=== PATIENT | female | born 1945 | race Caucasian/White ===

== ENCOUNTER 2019-02-28 16:14 | Emergency (ER) | payer MEDICARE ==
[2019-02-28] MEDS ORDERED: SODIUM CHLORIDE 0.9% 1,000 ML IV STA (16:50)
[2019-02-28 17:15] LABS: Basophils # (A) 0.1 k/uL (0-0.2); Basophils % (A) 1 %; Eosinophils # (A) 0.2 k/uL (0-0.7); Eosinophils % (A) 2 %; HCT 45.7 % (34.0-46.0); HGB 15.6 gm/dL (11.4-16.0); Lymphocytes # (A) 2.9 k/uL (1.0-4.8); Lymphocytes % (A) 33 %; MCH 32.4 pg (25.0-35.0); MCV 95.3 fL (80.0-100.0); Mean Platelet Volume 6.4; Monocytes # (A) 0.4 k/uL (0-1.0); Monocytes % (A) 5 %; Neutrophils # (A) 5.2 k/uL (1.3-7.7); Neutrophils % (A) 58 %; Platelet Count 271 k/uL (150-450); RDW 12.9 % (11.5-15.5); WBC 8.9 k/uL (3.8-10.6)
[2019-02-28 17:21] LABS: Albumin 4.2 g/dL (3.5-5.0); Calcium 9.4 mg/dL (8.4-10.2); Magnesium 2.2 mg/dL (1.6-2.3); Phosphorus 3.5 mg/dL (2.5-4.5); Potassium 4.4 mmol/L (3.5-5.1); Total Bilirubin 0.3 mg/dL (0.2-1.3); Total Protein 6.9 g/dL (6.3-8.2)
[2019-02-28 17:24] LABS: D-Dimer 0.58 mg/L FEU (<0.60); INR 0.9 (<1.2); Partial Thromboplastin Time 24.4 sec (22.0-30.0); Prothrombin Time 9.8 sec (9.0-12.0)
--- NOTE | 2019-02-28 17:33 | ED ---
Chest Pain HPI - General Chief Complaint: Arrhythmia/Palpitations Stated Complaint: Stress Time Seen by Provider: 02/28/19 16:19 Source: patient, RN notes reviewed, old records reviewed Mode of arrival: EMS Limitations: no limitations - History of Present Illness Initial Comments: This is a 73-year-old female she presents today for evaluation of palpitations overall not feeling well. Patient did admit to some increased stress as of late. Thinks it may be stress reaction to recent family member's or passing. But the issues with going on for 4 days. She is having some anterior chest pain and tightness with some increased anxiety. Patient has no significant medical history has surgery of gallbladder hysterectomy. No recent travel history no sick contacts no recent surgeries. No fevers. No shortness of breath or sweating during the events of pain. Patient is currently asymptomatic since today just because the pain is not gone away MD Complaint: chest pain -: days(s) Onset: during rest, during exertion Pain Location: substernal Pain Radiation: none Severity: mild Severity scale (1-10): 2 Quality: tightness Consistency: intermittent Improves With: nothing Worsens With: other (Stress reaction) Anginal Symptoms: other (None) Other Symptoms: other Treatments Prior to Arrival: other (Patient was seen at [facility] sent to ER) - Related Data Home Medications Medication Instructions Recorded Confirmed Aspirin 325 mg PO DAILY PRN 02/28/19 02/28/19 Cholecalciferol (Vitamin D3) 2,000 unit PO DAILY 02/28/19 02/28/19 [Vitamin D3] Latanoprost [Xalatan 0.005%] 1 drop BOTH EYES HS 02/28/19 02/28/19 Vit C/E/Zn/Coppr/Lutein/Zeaxan 1 cap PO DAILY 02/28/19 02/28/19 [Preservision Areds 2 Softgel] Allergies Allergy/AdvReac Type Severity Reaction Status Date / Time codeine Allergy Nausea & Verified 02/28/19 16:42 Vomiting latex Allergy Rash/Hives Verified 02/28/19 16:42 Review of Systems ROS Statement: Those systems with pertinent positive or pertinent negative responses have been documented in the HPI. ROS Other: All systems not noted in ROS Statement are negative. EKG Findings - EKG Comments: EKG Findings:: EKG shows sinus bradycardia 57, WV 204, QRS 86, QTc 424. EMS reports PVCs on rhythm strip Past Medical History Additional Past Medical History / Comment(s): leaky valve, tias, neuropathy History of Any Multi-Drug Resistant Organisms: None Reported Past Surgical History: Cholecystectomy, Hysterectomy Past Psychological History: No Psychological Hx Reported Smoking Status: Never smoker Past Alcohol Use History: Occasional Past Drug Use History: None Reported General Exam Limitations: no limitations General appearance: alert, in no apparent distress Head exam: Present: atraumatic, normocephalic, normal inspection Eye exam: Present: normal appearance, PERRL, EOMI. Absent: scleral icterus, conjunctival injection, periorbital swelling ENT exam: Present: normal exam, mucous membranes moist Neck exam: Present: normal inspection. Absent: tenderness, meningismus, lymphadenopathy Respiratory exam: Present: normal lung sounds bilaterally. Absent: respiratory distress, wheezes, rales, rhonchi, stridor Cardiovascular Exam: Present: regular rate, normal rhythm, normal heart sounds. Absent: systolic murmur, diastolic murmur, rubs, gallop, clicks GI/Abdominal exam: Present: soft, normal bowel sounds. Absent: distended, tenderness, guarding, rebound, rigid Extremities exam: Present: normal inspection, full ROM, normal capillary refill. Absent: tenderness, pedal edema, joint swelling, calf tenderness Back exam: Present: normal inspection Neurological exam: Present: alert, oriented X3, CN II-XII intact Psychiatric exam: Present: normal affect, normal mood Skin exam: Present: warm, dry, intact, normal color. Absent: rash Course Vital Signs 02/28/19 02/28/19 16:19 17:00 Temperature 98.2 F Pulse Rate 64 59 L Respiratory 16 18 Rate Blood Pressure 177/79 163/83 O2 Sat by Pulse 100 99 Oximetry - Reevaluation(s) Reevaluation #1: 02/28/19 18:44 Medical records reviewed Reevaluation #2: 02/28/19 18:44 Patient is asymptomatic no chest pain no shortness of breath Reevaluation #3: 02/28/19 18:44 Spoke with patient's regarding results. Patient states she feels fine and would like to be discharged home Chest Pain MDM - MDM 43 female with nonspecific chest tightness for 4 days episodic some mild anxiety and stress reaction. No shortness of breath no history of blood clot or DVT or PE Disposition Clinical Impression: Palpitations, Atypical chest pain, Anxiety Disposition: HOME SELF-CARE Condition: Good Instructions (If sedation given, give patient instructions): Heart Palpitations (ED) Is patient prescribed a controlled substance at d/c from ED?: No Referrals: Ricky Park III, MD [Primary Care Provider] - 1-2 days
--- NOTE | 2019-02-28 17:40 | XR ---
EXAMINATION: XR chest 2V DATE AND TIME: 02/28/2019 5:10 PM CLINICAL INDICATION: PHH; Weakness TECHNIQUE: Departmental protocol COMPARISON: None available. FINDINGS: Lungs are predominantly clear and well expanded. However, there is a right suprahilar subtle added de nsity, projecting just caudal to the head of the clavicle, which is most likely to represent summatio n shadows of overlapping normal anatomy. This density is not definitely confirmed on the lateral view . However, there are no prior imaging studies on PACS and, therefore, further characterization of thi s finding with noncontrast chest CT is suggested. The pleural spaces are negative. The cardiac silhouette is not enlarged. The remainder of the mediastinal silhouette is unremarkable. The skeletal structures and soft tissues are negative for acute findings. IMPRESSION: 1. No definite acute radiographic process. 2. However, right suprahilar density as discussed.
[2019-02-28 18:58] VITALS: BP 152/81; PULSE 58; RESP 16; TEMP 98.3
== END 2019-02-28 18:56 | disposition home or self-care (01) ==
LOC: EC 16:14
DX: F41.9 Anxiety disorder, unspecified (principal); R07.89 Other chest pain; F43.9 Reaction to severe stress, unspecified; Z88.5 Allergy status to narcotic agent; Z91.040 Latex allergy status; Z79.82 Long term (current) use of aspirin; Z86.73 Personal history of transient ischemic attack (TIA), and cerebral infarction without residual deficits
CPT/HCPCS: 36415; 71046; 80053; 82550; 83735; 83880; 84100; 84443; 84484; 85025; 85379; 85610; 85730; 93005; 96360; 99285

== ENCOUNTER → 2019-03-17 | Outpatient (CLI) | payer MEDICARE ==
--- NOTE | 2019-03-17 14:06 | US ---
EXAMINATION TYPE: US pelvic complete DATE OF EXAM: 03/17/2019 COMPARISON: NONE CLINICAL HISTORY: R10.2 pelvic pain. Intermittent pelvic pain and dark discharge x couple months, gra daniel 2, para 2, history of hysterectomy TECHNIQUE: Transabdominal sonographic images of the pelvis were acquired. Date of LMP: 1984 EXAM MEASUREMENTS: Uterus: surgically absent Endometrial Stripe: surgically absent Right Ovary: 2.0 x 1.2 x 1.2 cm Left Ovary: 1.5 x 0.7 x 1.3 cm 1. Uterus: surgically absent 2. Endometrium: surgically absent 3. Right Ovary: appears wnl 4. Left Ovary: appears wnl 5. Bilateral Adnexa: wnl 6. Posterior cul-de-sac: wnl IMPRESSION: Atrophic ovaries and surgical absence of the uterus. No suspicious mass is seen.
== END | disposition home or self-care (01) ==
LOC: RADUSWWP 13:19
PROVIDERS: ATTEND Obstetrics & Gynecology
DX: N83.312 Acquired atrophy of left ovary (principal); N83.311 Acquired atrophy of right ovary; Z90.710 Acquired absence of both cervix and uterus
CPT/HCPCS: 76856

== ENCOUNTER 2020-12-16 11:50 | Day surgery (SDC) | payer MEDICARE, OTHER ==
--- NOTE | 2020-12-16 01:26 | HP ---
HISTORY AND PHYSICAL REASON FOR ADMISSION: Surgery scheduled for 12/16/2020 HISTORY OF PRESENT ILLNESS: Irma Butts is a 75-year-old patient seen with progressive left knee pain. We discussed options for treatment. She elected to proceed with arthroscopy. Consent was obtained. PAST MEDICAL HISTORY: Hypertension. SURGICAL HISTORY: Cataract surgery, cholecystectomy, hysterectomy. DAILY MEDICATIONS: Lisinopril, vitamins. ALLERGIES: CODEINE AND TAPE. SOCIAL HISTORY: She denies current tobacco use. PHYSICAL EVALUATION OF THE LEFT KNEE: Range of motion zero to 130. Mild effusion. Tenderness along the medial joint line. Tenderness along the lateral joint line. Positive medial Charly's. Positive lateral Charly's. Ligaments stable. Hip rotation without pain. Distal neurovascular exam intact. RADIOGRAPHS: Radiographs of the left knee revealed moderate osteoarthritic changes. IMPRESSION: 1. Internal derangement left knee with medial meniscal tear. 2. Left knee osteoarthritis. 3. Hypertension. PLAN: Left knee arthroscopy with partial meniscectomy and debridement. Surgery scheduled 12/16/2020. MMODL / IJN: [id number] /
[~2020-12-16 11:50] MED LIST: DEXAMETHASONE SOD PHOSPHATE 4 MG/ML 1 ML VIAL IV ONE; HYDROmorphone 0.5 MG/0.5 ML SYRINGE IVP PRN; LACTATED RINGERS 1,000 ML IV SCH; ONDANSETRON 4 MG/2 ML VIAL IVP ONE
[2020-12-16] MEDS ORDERED: LIDOCAINE 1% INJ 10MG/ML (20 ML MDV) ONE (12:20)
[2020-12-16] MEDS ORDERED: PROPOFOL 10 MG/ML 20 ML VIAL IV ONE (12:20)
[2020-12-16] MEDS ORDERED: fentaNYL (PF) 50 MCG/ML 2 ML AMP ONE (12:20)
[2020-12-16] MEDS ORDERED: MIDAZOLAM 2 MG/2 ML VIAL ONE (12:20)
[2020-12-16] MEDS ORDERED: BUPIVACAINE (PF) 0.25% 30 ML VIAL SQ ONE ×2 (12:24→13:01)
--- NOTE | 2020-12-16 13:15 | P.OP ---
Date of Procedure: 12/16/20 Preoperative Diagnosis: Internal derangement left knee Postoperative Diagnosis: 1. Tear medial meniscus left knee 2. Grade 3/4 chondromalacia medial femoral condyle left knee 3. Reactive synovitis medial, lateral and suprapatellar compartments left knee Procedure(s) Performed: 1. Arthroscopic partial medial meniscectomy left knee 2. Arthroscopic chondroplasty medial femoral condyle left knee 3. Arthroscopic partial synovectomy medial, lateral and suprapatellar compartments left knee Anesthesia: GETA, local Surgeon: Leo Erazo Estimated Blood Loss (ml): 7 Pathology: none sent Condition: stable Disposition: PACU Indications for Procedure: 75-year-old patient seen with progressive left knee pain. After treatment options were discussed, she elected to proceed with arthroscopy. Operative Findings: See description of procedure Description of Procedure: Patient was taken to the operative suite. Patient underwent a general anesthetic by the department of anesthesia. Patient was given preoperative antibiotics. The left lower extremity was placed in a well-padded arthroscopic leg mejia. The left leg was prepped and draped in the normal sterile orthopedic fashion. A lateral parapatellar and suprapatellar incision was made. Trochars were inserted. Arthroscopy was initiated. Suprapatellar pouch revealed diffuse thick reactive synovitis. The patellofemoral joint appeared to articulate congruently. There was grade 2/3 chondromalacia of the patella with some small osteochondral tears present. The scope was guided into the medial gutter. No loose bodies or plica were identified. The scope was then guided into the medial compartment. A medial parapatellar incision was made. Trocar inserted followed by probe. There was a complex tear involving the posterior horn of the medial meniscus extending slightly into the midbody. There were grade 3/4 chondromalacia changes of the medial femoral condyle with some osteochondral tears present. There was thick reactive synovitis anteriorly. I performed a partial medial meniscectomy getting down to stable meniscal tissue. I performed a chondroplasty of the medial femoral condyle getting down to stable osteochondral tissue. I performed a partial synovectomy decompressing the reactive synovitis. The shaver was removed. The residual meniscus was stable. The residual osteochondral surface was stable. There was good decompression of the synovitis. Scope and probe were then guided into the intercondylar notch. Cruciates were identified, probed and found to be stable. The scope and probe were then guided into lateral compartment. Lateral meniscus was probed and found to be stable. There were some grade 1 chondromalacia changes of lateral compartment with no tears. There was thick reactive synovitis anteriorly. I introduced a motorized shaver and performed a partial synovectomy. The shaver was removed. There was good decompression of the synovitis. The scope was in guided back into the suprapatellar compartment. I introduced a motorized shaver into the super patellar compartment. I performed a chondroplasty of the patella. I debrided out some piecemeal fragments of meniscus I encountered. I performed a partial synovectomy. The shaver was removed. There was good decompression of the synovitis. Instruments were now removed from the joint. The joint was infiltrated with .25% Marcaine. Steri-Strips were applied to the portal sites. Sterile dressings were applied. The patient was placed into a MICHI hose. No tourniquet was utilized. The patient was awakened, transferred to a bed and taken to recovery stable satisfactory condition.
[2020-12-16 13:18] VITALS: TEMP 97
[2020-12-16] MEDS ORDERED: ONDANSETRON 4 MG/2 ML VIAL ONE (13:34)
[2020-12-16] MEDS ORDERED: ONDANSETRON 4 MG/2 ML VIAL IVP ONE (13:36)
[2020-12-16 14:01] VITALS: RESP 20
[2020-12-16 14:25] VITALS: BP 128/68; PULSE 56
== END 2020-12-16 15:17 | disposition home or self-care (01) ==
LOC: OR 11:50
PROVIDERS: ATTEND Orthopaedic Surgery
DX: S83.242A Other tear of medial meniscus, current injury, left knee, initial encounter (principal); X58.XXXA Exposure to other specified factors, initial encounter; M94.262 Chondromalacia, left knee; M65.9 Synovitis and tenosynovitis, unspecified; I10 Essential (primary) hypertension; Z79.899 Other long term (current) drug therapy; Z88.5 Allergy status to narcotic agent; Z91.048 Other nonmedicinal substance allergy status
CPT/HCPCS: 29881; 29876; J2250; J1100; J0690; J2405; J2001; J3010; J2704; J1170

== ENCOUNTER → 2021-02-10 | Outpatient (CLI) | payer MEDICARE, OTHER ==
--- NOTE | 2021-02-10 17:59 | MR ---
EXAMINATION TYPE: MR shoulder RT wo con DATE OF EXAM: 02/10/2021 COMPARISON: No radiographic correlation available HISTORY: 75-year-old female M25.511, Right shoulder pain for several months. TECHNIQUE: Multiplanar, multisequence imaging of the right shoulder is performed without contrast. FINDINGS: The long biceps tendon appears intact. There is slight medial subluxation along the upper bicipital g roove ingesting attritional tear in the subscapularis tendon. The majority of the subscapularis tendo n remains intact. Mild degenerative change at the acromioclavicular joint with joint space narrowing and capsular hyper trophy. Mild degenerative spurring is present. No significant mass effect onto the underlying myotend inous junction of the supraspinatus tendon. There is moderate sized anterior subcutaneous acromial/subdeltoid bursal effusion. No large retracted full-thickness tear is identified. The anterior fibers of the supraspinatus tendon are very heteroge neous with areas of increased signal and a small full-thickness defect here is difficult to exclude. Areas of intrasubstance change within the remainder of the supraspinous tendon. Infraspinous tendon is intact. Minimal fatty streaks within the subscapularis muscle belly. No atrophy of either supraspinatus or in fraspinatus muscle bellies. There is moderate irregular cartilage thinning along the superior half of the humeral head articular surface and [id number] irregular cartilage thinning along the glenoid. The superior labrum is d egenerative and blunted and the suspected tear extending to the mid posterior labrum. Marginal spurri ng is present in the glenohumeral joint. Mild glenoid humeral joint effusion. No Hill-Sachs deformity or os acromiale. No suspicious bone marrow replacement. IMPRESSION: 1. Diffuse rotator cuff tendinosis. Moderate-sized anteriorly located subacromial/subdeltoid bursal e ffusion. There is heterogeneity and irregularity of the far anterior supraspinous tendon fibers. A sm all underlying full-thickness defect is difficult to exclude given this irregularity and the anterior bursal effusion. No large retracted full-thickness tear. 2. Attritional tearing of the subscapularis tendon allowing for slight medial subluxation of the long head biceps tendon in the upper bicipital groove. The majority of the subscapularis tendon remains i ntact. Minimal fatty streaks within the subscapularis muscle belly. Otherwise, no rotator cuff muscle atrophy. 3. Moderate overall glenohumeral joint OA with a degenerative and torn superior labrum extending back to the mid aspect of the posterior labrum. 4. Mild AC joint OA.
== END | disposition home or self-care (01) ==
LOC: RADMRIMAIN 14:16
PROVIDERS: ATTEND Orthopaedic Surgery
DX: M19.011 Primary osteoarthritis, right shoulder (principal); M75.111 Incomplete rotator cuff tear or rupture of right shoulder, not specified as traumatic; M67.813 Other specified disorders of tendon, right shoulder; M24.111 Other articular cartilage disorders, right shoulder

== ENCOUNTER → 2021-07-25 | Outpatient (CLI) | payer MEDICARE, OTHER ==
--- NOTE | 2021-07-26 06:36 | MR ---
EXAMINATION TYPE: MR angio head wo con DATE OF EXAM: 07/25/2021 COMPARISON: NONE HISTORY: Subacute stroke. CVA. TECHNIQUE: Time of flight images focusing on the [place] of [place] were performed without contrast.. 2-D and 3-D postprocessing imaging is performed on a independent workstation. FINDINGS: Left vertebral artery slightly larger or dominant. Vertebral arteries are patent to basilar junction. There are small caliber but patent bilateral posterior communicating arteries. There is no significant focal stenosis or aneurysm in the posterior circulation. Images of the anterior circulation showed tortuosity of the distal internal carotid arteries bilatera lly. There is tortuous course to the right A1 segment. Patent anterior communicating artery is seen. There is no significant focal stenosis or aneurysm identified. IMPRESSION: No aneurysm or significant focal stenosis identified at level of [place].
== END | disposition home or self-care (01) ==
LOC: RADMRIMAIN 17:02
PROVIDERS: ATTEND Psychiatry & Neurology Neurology
DX: I69.398 Other sequelae of cerebral infarction (principal)
CPT/HCPCS: 70544

== ENCOUNTER → 2022-09-13 | Outpatient (CLI) | payer MEDICARE, OTHER ==
--- NOTE | 2022-09-14 09:16 | MM ---
Reason for Exam: Screening (asymptomatic). Last mammogram was performed 1 year(s) and 10 month(s) ago. Patient History: Menarche at age 14. First Full-Term at age 20. Hysterectomy at age 39. Postmenopausal. 2020, Stereotactic Core Biopsy on the Left side. Mother had breast cancer, age 80. Risk Values: Francisca 5 year model risk: 3.5%. NCI Lifetime model risk: 6.3%. Prior Study Comparison: 12/01/2019 Bilateral MG screening mammo w CAD - 2, [facility]. 12/02/2020 Bilateral MG screening mammo w CAD - 2, [facility]. Tissue Density: There are scattered fibroglandular densities. Findings: Analyzed By CAD. Mammotome biopsy clip left breast is redemonstrated. Benign-appearing left axillary lymph nodes are again seen. A few tiny benign-appearing round calcifications throughout the bilateral breasts are redemonstrated. Stable small circumscribed round mass in the left breast near 3 mm from outside mammograms. There is no suspicious group of microcalcifications or new or enlarging suspicious mass in either breast. Overall Assessment: Benign, BI-RAD 2 Management: Screening Mammogram of both breasts in 1 year. . Patient should continue monthly self-breast exams. A clinical breast exam by your physician is recommended on an annual basis. This exam should not preclude additional follow-up of suspicious palpable abnormalities. Note on Francisca scores and lifetime risk: 1. A Francisca score greater than 3% is considered moderate risk. If this is the case, consider specialist referral to assess eligibility for a risk reducing agent. 2. If overall lifetime risk for the development of breast cancer is 20% or higher, the patient may qualify for future screening with alternating mammogram and breast MRI. Electronically signed and approved by: Manuel Darnell M.D.
== END | disposition home or self-care (01) ==
LOC: RADMAMWWP 08:21
PROVIDERS: ATTEND Family Medicine
DX: Z12.31 Encounter for screening mammogram for malignant neoplasm of breast (principal); Z78.0 Asymptomatic menopausal state; Z80.3 Family history of malignant neoplasm of breast
CPT/HCPCS: 77063; 77067

== ENCOUNTER 2022-12-21 10:53 | Inpatient (IN) | payer MEDICARE, OTHER ==
[2022-12-21 11:28] LABS: Basophils % (A) 0 %; Eosinophils # (A) 0.1 k/uL (0-0.7); Eosinophils % (A) 1 %; HCT 49.9 % (34.0-46.0); HGB 16.8 gm/dL (11.4-16.0); Lymphocytes # (A) 2.6 k/uL (1.0-4.8); Lymphocytes % (A) 28 %; MCH 31.6 pg (25.0-35.0); MCHC 33.7 g/dL (31.0-37.0); Mean Platelet Volume 7.8; Monocytes # (A) 0.6 k/uL (0-1.0); Monocytes % (A) 6 %; Neutrophils % (A) 64 %; Platelet Count 281 k/uL (150-450); RBC 5.31 m/uL (3.80-5.40); WBC 9.5 k/uL (3.8-10.6)
[2022-12-21 11:39] LABS: ALT 33 U/L (4-34); AST 36 U/L (14-36); African American GFR (CKD) >90 (>60 ml/min/1.73 sqM); Albumin 4.6 g/dL (3.5-5.0); Alkaline Phosphatase 111 U/L (38-126); Anion Gap 9 mmol/L; Blood Urea Nitrogen 13 mg/dL (7-17); Calcium 9.5 mg/dL (8.4-10.2); Carbon Dioxide 27 mmol/L (22-30); Chloride 105 mmol/L (98-107); Glucose 93 mg/dL (74-99); Magnesium 2.2 mg/dL (1.6-2.3); Non-African American GFR(CKD) 84 (>60 ml/min/1.73 sqM); Potassium 4.1 mmol/L (3.5-5.1); Sodium 141 mmol/L (137-145); Total Bilirubin 0.8 mg/dL (0.2-1.3); Total Protein 7.4 g/dL (6.3-8.2)
[2022-12-21 11:39] LABS: Appearance,Urine Clear (Clear); Bilirubin,Urine Negative (Negative); Blood,Urine Negative (Negative); Color,Urine Light Yellow; Glucose,Urine (UA) Negative (Negative); Ketones,Urine Negative (Negative); Leukocyte Esterase,Urine Small (Negative); Mucus,Urine Rare /hpf; Nitrite,Urine Negative (Negative); PH, Urine 6.5 (5.0-8.0); Protein,Urine Negative (Negative); RBC,Urine <1 /hpf (0-5); Specific Gravity,Urine 1.004 (1.001-1.035); Squamous Epithelial Cell,Urine <1 /hpf (0-4); Urobilinogen,Urine <2.0 mg/dL (<2.0); WBC,Urine 2 /hpf (0-5)
[2022-12-21 13:12] LABS: Partial Thromboplastin Time 24.8 sec (22.0-30.0); Prothrombin Time 10.5 sec (9.0-12.0)
--- NOTE | 2022-12-21 13:31 | ED ---
General Adult HPI - General Chief complaint: Dizziness Stated complaint: neuro issues, hypertension Time Seen by Provider: 12/21/22 13:30 Source: patient Mode of arrival: ambulatory Limitations: no limitations - History of Present Illness Initial comments: Irma is a pleasant 77yo F who presents to the ER via private vehicle for evaluation of dizziness and unsteady gait. Patient reports that she has a history of vertigo and on Sunday she started feeling somewhat dizzy and unsteady on her feet. She states that she tried to sleep, however she woke up Sunday and had persistent dizziness. She felt okay if she wasn't moving but any time she tried to walk her or turn her head she felt dizzy however she was most concerned by the fact that she had no balance when attempting to walk. She's never experienced symptoms this severe with vertigo in the past. Patient reports she had a mild headache and nausea so she didn't eat or drink anything on Sunday. Symptoms persisted in her being off balance seemed to worsen on Sunday she is requiring assistance to walk to the restroom. Due to persistence of symptoms she decided to come to the ER today. At this point patient states she cannot even stand without assistance because she is soft tri nce. - Related Data Home Medications Medication Instructions Recorded Confirmed lisinopriL [Zestril] 2.5 mg PO DAILY 12/16/20 12/21/22 Aspirin EC [Ecotrin Low Dose] 81 mg PO DAILY 12/21/22 12/21/22 Cholecalciferol [Vitamin D3 (25 50 mcg PO DAILY 12/21/22 12/21/22 Mcg = 1000 Iu)] Meclizine [Antivert] 25 mg PO TID PRN 12/21/22 12/21/22 Mv-Mn/Om3/Dha/Epa/Fish/Lut/Jax 1 cap PO DAILY 12/21/22 12/21/22 [Ocuvite Adult 50 Plus Softgel] Allergies Allergy/AdvReac Type Severity Reaction Status Date / Time codeine Allergy Nausea & Verified 12/21/22 14:48 Vomiting latex Allergy Rash/Hives Verified 12/21/22 14:48 Review of Systems ROS Statement: Those systems with pertinent positive or pertinent negative responses have been documented in the HPI. ROS Other: All systems not noted in ROS Statement are negative. Past Medical History Past Medical History: COPD, CVA/TIA, Hypertension Additional Past Medical History / Comment(s): BRONCHITIS. Leaky valve (WAS TOLD BY DR, PATIENT DOES NOT KNOW SPECIFICS). Neuropathy LOWER EXTREMITIES. LOWER BACK (BULGING DISCS). History of Any Multi-Drug Resistant Organisms: None Reported Past Surgical History: Breast Surgery, Cholecystectomy, Hysterectomy Additional Past Surgical History / Comment(s): BILATERAL CATARACT AND LENS IMPLANTS. LEFT BREAST LUMPECTOMY (PATIENT THINKS ITS PRECANCEROUS) Past Anesthesia/Blood Transfusion Reactions: Motion Sickness, Postoperative Nausea & Vomiting (PONV) Past Psychological History: Anxiety Smoking Status: Never smoker Past Alcohol Use History: Rare Past Drug Use History: None Reported - Past Family History Son(s) Family Medical History: Pulmonary Embolus General Exam - General Exam Comments Initial Comments: Physical Exam GENERAL: Patient is well-developed and well-nourished. Patient is nontoxic and well-hydrated and is in no distress. HENT: Normocephalic, Atraumatic. EYES: PERRL, EOMI PULMONARY: Unlabored respirations. No audible rales rhonchi or wheezing was noted. CARDIOVASCULAR: There is a regular rate and rhythm without any murmurs gallops or rubs. ABDOMEN: Soft and nontender with normal bowel sounds. SKIN: Skin is clear with no lesions or rashes and otherwise unremarkable. : Deferred NEUROLOGIC: Patient is alert and oriented x3. Moving all extremities spontaneously CN II-XII grossly intact Normal finger nose Normal repetitive motion task Normal heel lin Positive Romberg MUSCULOSKELETAL: Normal extremities with adequate strength and full range of motion. No lower extremity swelling or edema. No calf tenderness. PSYCHIATRIC: Normal psychiatric evaluation. Limitations: no limitations Course Vital Signs 12/21/22 12/21/22 12/21/22 10:55 14:00 15:56 Temperature 98.2 F Pulse Rate 61 58 L 88 Respiratory 20 18 18 Rate Blood Pressure 169/72 152/75 162/94 O2 Sat by Pulse 98 97 97 Oximetry EKG Findings - EKG Comments: EKG Findings:: EKG interpreted by me, EKG is obtained due to strokelike symptoms EKG obtained at 1103, rate is 63 rhythm is sinus, normal axis normal intervals [place] 188 QRS [address] QTc [address] elevations or depressions or evidence of ischemia or infarction or arrhythmia. Medical Decision Making - Medical Decision Making Was pt. sent in by a medical professional or institution (, [facility], EXECUTIVE DIRECTOR [employer] WORK[employer], urgent care, hospital, or assisted...) When possible be specific @ -No Did you speak to anyone other than the patient for history (EMS, parent, family, police, friend...)? What history was obtained from this source @ - at bedside Did you review nursing and triage notes (agree or disagree)? Why? @ -I reviewed and agree with nursing and triage notes Were old charts reviewed (outside hosp., previous admission, EMS record, old EKG, old radiological studies, urgent care reports/EKG's, assisted records)? Report findings @ -No old charts were reviewed Differential Diagnosis (chest pain, altered mental status, abdominal pain women, abdominal pain men, vaginal bleeding, weakness, fever, dyspnea, syncope, headache, dizziness, GI bleed, back pain, seizure, CVA, palpatations, mental health, musculoskeletal)? @ -Differential Dizziness: Benign paroxysmal positional Vertigo, Menieres disease, otitis media, acoustic neuroma, vertebrobasilar insufficiency, cerebellar stroke, encephalitis, hypovolemic, arrhythmia, coronary artery syndrome, anemia, this is not meant to be an all-inclusive list EKG interpreted by me (3pts min.). @ -As above X-rays interpreted by me (1pt min.). @ -None done CT interpreted by me (1pt min.). @ -I see no obvious masses, bleed, midline shift on CT and CTA see no clear aneurysm U/S interpreted by me (1pt. min.). @ -None done What testing was considered but not performed or refused? (CT, X-rays, U/S, labs)? Why? @ -MRI can be completed when patient is admitted What meds were considered but not given or refused? Why? @ -None Did you discuss the management of the patient with other professionals (professionals i.e. DIXON Candelaria, EXECUTIVE DIRECTOR [employer], lab, RT, psych nurse, social service director, assembler metal furniture, teacher, deputy juvenile officer, family caseworker)? Give summary @ -Discussed with the admitting physician Dr. Ibanez Was smoking cessation discussed for >3mins.? @ -No Was critical care preformed (if so, how long)? @ -No Were there social determinants of health that impacted care today? How? (Homeles sness, low income, unemployed, alcoholism, drug addiction, transportation, low edu. Level, literacy, decrease access to med. care, correction, rehab)? @ -No Was there de-escalation of care discussed even if they declined (Discuss DNR or withdrawal of care, Hospice)? DNR status @ -No What co-morbidities impacted this encounter? (DM, HTN, Smoking, COPD, CAD, Cancer, CVA, ARF, Chemo, Hep., AIDS, mental health diagnosis, sleep apnea, morbid obesity)? @ -Previous TIA CVA Was patient admitted / discharged? Hospital course, mention meds given and route, prescriptions, significant lab abnormalities, going to OR and other pertinent info. @ -Patient was seen and evaluated history and physical exam are concerning for strokelike symptom as the patient has significant trouble with coordination and equilibrium. She was treated with Antivert and a stroke workup was completed. CT and CTA were negative patient no improvement with Antivert. At this time except the patient warrants further evaluation with possible MRI. Care was discussed with the admitting physician Dr. david killian who accepts the admission with consult to neurology. Undiagnosed new problem with uncertain prognosis? @ - Yes Drug Therapy requiring intensive monitoring for toxicity (Heparin, Nitro, Insulin, Cardizem)? @ -No Were any procedures done? @ -No Diagnosis/symptom? @ -Intractable dizziness, unsteady gait Acute, or Chronic, or Acute on Chronic? @ -Acute Uncomplicated (without systemic symptoms) or Complicated (systemic symptoms)? @ -default Side effects of treatment? @ -No Exacerbation, Progression, or Severe Exacerbation? @ -No Poses a threat to life or bodily function? How? (Chest pain, USA, PA, pneumonia, PE, COPD, DKA, ARF, appy, cholecystitis, CVA, Diverticulitis, Homicidal, Suicidal, threat to staff... and all critical care pts) @ -No - Lab Data Result diagrams: 12/21/22 11:12 12/21/22 11:12 Lab Results 12/21/22 12/21/22 12/21/22 Range/Units 11:12 11:12 11:12 WBC 9.5 (3.8-10.6) k/uL RBC 5.31 (3.80-5.40) m/uL Hgb 16.8 H (11.4-16.0) gm/dL Hct 49.9 H (34.0-46.0) % MCV 94.0 (80.0-100.0) fL MCH 31.6 (25.0-35.0) pg MCHC 33.7 (31.0-37.0) g/dL RDW 13.0 (11.5-15.5) % Plt Count 281 (150-450) k/uL MPV 7.8 Neutrophils % 64 % Lymphocytes % 28 % Monocytes % 6 % Eosinophils % 1 % Basophils % 0 % Neutrophils # 6.0 (1.3-7.7) k/uL Lymphocytes # 2.6 (1.0-4.8) k/uL Monocytes # 0.6 (0-1.0) k/uL Eosinophils # 0.1 (0-0.7) k/uL Basophils # 0.0 (0-0.2) k/uL PT 10.5 (9.0-12.0) sec INR 1.0 (<1.2) APTT 24.8 (22.0-30.0) sec Sodium 141 (137-145) mmol/L Potassium 4.1 (3.5-5.1) mmol/L Chloride 105 (98-107) mmol/L Carbon Dioxide 27 (22-30) mmol/L Anion Gap 9 mmol/L BUN 13 (7-17) mg/dL Creatinine 0.69 (0.52-1.04) mg/dL Est GFR (CKD-EPI)AfAm >90 (>60 ml/min/1.73 sqM) Est GFR (CKD-EPI)NonAf 84 (>60 ml/min/1.73 sqM) Glucose 93 (74-99) mg/dL Calcium 9.5 (8.4-10.2) mg/dL Magnesium 2.2 (1.6-2.3) mg/dL Total Bilirubin 0.8 (0.2-1.3) mg/dL AST 36 (14-36) U/L ALT 33 (4-34) U/L Alkaline Phosphatase 111 (38-126) U/L Troponin I (0.000-0.034) ng/mL Total Protein 7.4 (6.3-8.2) g/dL Albumin 4.6 (3.5-5.0) g/dL Urine Color Urine Appearance (Clear) Urine pH (5.0-8.0) Ur Specific [place] (1.001-1.035) Urine Protein (Negative) Urine Glucose (UA) (Negative) Urine Ketones (Negative) Urine Blood (Negative) Urine Nitrite (Negative) Urine Bilirubin (Negative) Urine Urobilinogen (<2.0) mg/dL Ur Leukocyte Esterase (Negative) Urine RBC (0-5) /hpf Urine WBC (0-5) /hpf Ur Squamous Epith Cells (0-4) /hpf Urine Mucus (None) /hpf 12/21/22 12/21/22 Range/Units 11:12 11:19 WBC (3.8-10.6) k/uL RBC (3.80-5.40) m/uL Hgb (11.4-16.0) gm/dL Hct (34.0-46.0) % MCV (80.0-100.0) fL MCH (25.0-35.0) pg MCHC (31.0-37.0) g/dL RDW (11.5-15.5) % Plt Count (150-450) k/uL MPV Neutrophils % % Lymphocytes % % Monocytes % % Eosinophils % % Basophils % % Neutrophils # (1.3-7.7) k/uL Lymphocytes # (1.0-4.8) k/uL Monocytes # (0-1.0) k/uL Eosinophils # (0-0.7) k/uL Basophils # (0-0.2) k/uL PT (9.0-12.0) sec INR (<1.2) APTT (22.0-30.0) sec Sodium (137-145) mmol/L Potassium (3.5-5.1) mmol/L Chloride (98-107) mmol/L Carbon Dioxide (22-30) mmol/L Anion Gap mmol/L BUN (7-17) mg/dL Creatinine (0.52-1.04) mg/dL Est GFR (CKD-EPI)AfAm (>60 ml/min/1.73 sqM) Est GFR (CKD-EPI)NonAf (>60 ml/min/1.73 sqM) Glucose (74-99) mg/dL Calcium (8.4-10.2) mg/dL Magnesium (1.6-2.3) mg/dL Total Bilirubin (0.2-1.3) mg/dL AST (14-36) U/L ALT (4-34) U/L Alkaline Phosphatase (38-126) U/L Troponin I <0.012 (0.000-0.034) ng/mL Total Protein (6.3-8.2) g/dL Albumin (3.5-5.0) g/dL Urine Color Light Yellow Urine Appearance Clear (Clear) Urine pH 6.5 (5.0-8.0) Ur Specific [place] 1.004 (1.001-1.035) Urine Protein Negative (Negative) Urine Glucose (UA) Negative (Negative) Urine Ketones Negative (Negative) Urine Blood Negative (Negative) Urine Nitrite Negative (Negative) Urine Bilirubin Negative (Negative) Urine Urobilinogen <2.0 (<2.0) mg/dL Ur Leukocyte Esterase Small H (Negative) Urine RBC <1 (0-5) /hpf Urine WBC 2 (0-5) /hpf Ur Squamous Epith Cells <1 (0-4) /hpf Urine Mucus Rare H (None) /hpf Disposition Clinical Impression: Gait instability, Dizziness, Headache Disposition: ADMITTED IP TO THIS HOSP Condition: Serious Is patient prescribed a controlled substance at d/c from ED?: No Referrals: Andres Velasquez MD [Primary Care Provider] - 1-2 days
--- NOTE | 2022-12-21 16:05 | CT ---
EXAMINATION TYPE: CT brain wo con CT DLP: weakness, unable to walk unassisted mGycm, Automated exposure control for dose reduction was used. DATE OF EXAM: 12/21/2022 3:54 PM COMPARISON: MRA head 07/25/2021 CLINICAL INDICATION:Female, 77 years old with history of dizziness, 1611.3 TECHNIQUE: Brain: Multiple axial CT images of the brain were obtained without IV contrast. Coronal and sagittal reformats reviewed. FINDINGS: Brain: Extra-axial spaces: No abnormal extra-axial fluid collections. Ventricular system: Within normal limits Cerebral parenchyma: No acute intraparenchymal hemorrhage or mass effect. The cheung-white junction is well differentiated. Scattered hypoattenuating areas are seen within the white matter. Cerebellum: Unremarkable. Mass effect: No evidence of midline shift. Intracranial vasculature: Atherosclerotic calcifications of the intracranial vessels. Soft tissues: Normal. Calvarium/osseous structures: No depressed skull fracture. Benign hyperostosis frontalis noted. Paranasal sinuses and mastoid air cells: Clear Visualized orbits: The lenses are surgically removed from the globes. IMPRESSION: 1. No acute intracranial process. 2. Nonspecific white matter changes, likely secondary to chronic small vessel ischemic disease.
--- NOTE | 2022-12-21 16:15 | CT ---
EXAMINATION TYPE: CT angio head neck CT DLP: 1611.3 mGycm, Automated exposure control for dose reduction was used. DATE OF EXAM: 12/21/2022 3:57 PM COMPARISON: CT head same day. CLINICAL INDICATION:Female, 77 years old with history of dizziness; PHH, weakness, unable to walk taz ssisted TECHNIQUE: Axially acquired helical CT angiogram of the head and neck was obtained with contrast. Axi al images are supplemented with 3D reconstructions which were post-processed at an independent workst [facility]. NASCET criteria used. Contrast used:65 mL of Isovue 370 with IV Contrast, Oral contrast used: None. FINDINGS: CTA HEAD: No evidence of acute intracranial hemorrhage, mass effect, or midline shift. The ventricles, sulci, a nd cisterns are unremarkable. The visualized portions of the internal carotid arteries, middle cerebral arteries, anterior cerebral arteries, and posterior cerebral arteries are patent. Bilaterally aphakia. The basilar and vertebral arteries are patent. CTA NECK: Right Carotid System: The common carotid artery and external carotid artery are patent. The carotid bifurcation demonstrate s no evidence of hemodynamically significant stenosis. The remaining portions of the internal carotid artery demonstrate normal size without significant narrowing. Left Carotid System: The common carotid artery and external carotid artery are patent. The carotid bifurcation demonstrate s no evidence of hemodynamically significant stenosis. The remaining portions of the internal carotid artery demonstrate normal size without significant narrowing. Vertebral arteries are patent without evidence hemodynamically significant stenosis. There is a three-vessel aortic arch. The origins of the great vessels are patent. No evidence of hemo dynamically significant stenosis. Upper thorax: IMPRESSION: 1. No evidence of dissection of the cervical internal carotid arteries or vertebral arteries or any e vidence of significant stenosis at the carotid bifurcations. 2. No evidence of intracranial high-grade stenosis or intracranial aneurysm.
[2022-12-21] MEDS ORDERED: MECLIZINE 12.5 MG TAB PO STA (16:16)
[2022-12-21] MEDS ORDERED: ASPIRIN 325 MG TAB PO STA (17:37)
--- NOTE | 2022-12-21 18:21 | P.HPIM ---
History of Present Illness H&P Date: 12/21/22 Patient is a 77-year-old female with history of vertigo, prior TIA, COPD, and hypertension who presented to the ER with complaints of persistent dizziness. On arrival to the ER her vital signs are within normal limits. Laboratory analysis was remarkable for hemoglobin of 16.8 and a hematocrit of 49.9, troponin negative at 0.012, urinalysis negative. CT of the head and neck showed no evidence of dissection of the cervical internal carotid arteries and vertebral arteries were any significant stenosis, no evidence of high grade stenosis of intracranial or intracranial aneurysm. CT brain shows no acute process with nonspecific white matter changes likely secondary to chronic small vessel ischemic disease. In the ER she was given a dose of antivert without relief. There was concern for possibel CVA and she was given a dose of Aspirin. Patient seen and examined at bedside. She reports that on Sunday while she was watching TV she had sudden onset of dizziness. She thought this was her prior vertigo and therefore went to bed hoping it would resolve. On Sunday she woke up and anytime she moved to the dizziness was severe. She was unable to stand without holding onto the levine or assistance. She also reports that when she stood up she had nausea and dry heaving along with some diaphoresis. She hasconitnued to have persisitent dizziness that has been intractable. She has been drinking well but has not had much of an appetitie. She denies any recent illnesses such as cough, cold, fever, flu. She has not missed any doses of her medications other than one dose of lisinopril due to the nausea on Sunday morning. Vital signs reviewed General: nontoxic, no distress, appears at stated age Derm: warm, dry Eyes: EOMI, no lid lag, anicteric sclera, pupils equal round reactive to light ENT: Nose and ears atraumatic, no thrush, no pharyngeal erythema Cardiovascular: S1S2 reg, no murmur, positive posterior tibial pulse bilateral Lungs: clear to auscultation bilateral, no rhonchi, no rales, no wheeze, no accessory muscle use Abdominal: soft, nontender to palpation, no guarding, no appreciable organomegaly, normal bowel sounds Ext: no gross muscle atrophy, muscle strength 5 out of 5 in all 4 extremities, no contractures Neuro: CN II-XII grossly intact, light touch intact all 4 extremities, finger to nose within normal limits, [id number] within normal, no dysdiadochokinesis, nose he'll drift down and 15 seconds Psych: Alert, oriented, appropriate affect Assessment/Plan: Intractable dizziness with history of vertigo and TIA -Aspirin 81 mg daily, Lipitor 40 mg at night -PT/OT/speech evaluation -Echocardiogram -Telemetry -MRI brain -Neurology consultation -Antivert 50 mg 3 times daily -Hold lisinopril for permissive hypertension for 48 hours Chronic: COPD Hypertension Chronic low back pain with neuropathy Imaging: As per HPI Data Review: As per HPI The patient is place in observation with an anticipated Less than 2 midnight stay for evaluation of intracatable dizziness with concern for CVA . Surrogate decision-maker: CODE STATUS:DNR DVT prophylaxis: lovenox Discussed with: patient, ed provider Anticipated discharge date: in 24-[address]: home This dictation was prepared using [employer] voice recognition software. Though every attempt is made to correct errors during dictation some may still exist. Past Medical History Past Medical History: COPD, CVA/TIA, Hypertension Additional Past Medical History / Comment(s): BRONCHITIS. mild valvular disease, Neuropathy LOWER EXTREMITIES. LOWER BACK (BULGING DISCS). History of Any Multi-Drug Resistant Organisms: None Reported Past Surgical History: Breast Surgery, Cholecystectomy, Hysterectomy Additional Past Surgical History / Comment(s): BILATERAL CATARACT AND LENS IMPLANTS. LEFT BREAST LUMPECTOMY (PATIENT THINKS ITS PRECANCEROUS) Past Anesthesia/Blood Transfusion Reactions: Motion Sickness, Postoperative Nausea & Vomiting (PONV) Past Psychological History: Anxiety Smoking Status: Never smoker Past Alcohol Use History: Rare Past Drug Use History: None Reported - Past Family History Son(s) Family Medical History: Pulmonary Embolus Medications and Allergies Home Medications Medication Instructions Recorded Confirmed Type lisinopriL [Zestril] 2.5 mg PO DAILY 12/16/20 12/21/22 History Aspirin EC [Ecotrin Low Dose] 81 mg PO DAILY 12/21/22 12/21/22 History Cholecalciferol [Vitamin D3 (25 50 mcg PO DAILY 12/21/22 12/21/22 History Mcg = 1000 Iu)] Meclizine [Antivert] 25 mg PO TID PRN 12/21/22 12/21/22 History Mv-Mn/Om3/Dha/Epa/Fish/Lut/Jax 1 cap PO DAILY 12/21/22 12/21/22 History [Ocuvite Adult 50 Plus Softgel] Allergies Allergy/AdvReac Type Severity Reaction Status Date / Time codeine Allergy Nausea & Verified 12/21/22 14:48 Vomiting latex Allergy Rash/Hives Verified 12/21/22 14:48 Physical Exam Osteopathic Statement: *. No significant issues noted on an osteopathic structural exam other than those noted in the History and Physical/Consult. Vitals: Vital Signs Temp Pulse Resp BP Pulse Ox 12/21/22 15:56 88 18 162/94 97 12/21/22 14:00 58 L 18 152/75 97 12/21/22 10:55 98.2 F 61 20 169/72 98 Intake and Output 12/21/22 12/21/22 12/21/22 06:59 14:59 22:59 Other: Weight 75.75 kg Results CBC & Chem 7: 12/21/22 11:12 12/21/22 11:12 Labs: Abnormal Lab Results - Last 24 Hours (Table) 12/21/22 12/21/22 Range/Units 11:12 11:19 Hgb 16.8 H (11.4-16.0) gm/dL Hct 49.9 H (34.0-46.0) % Ur Leukocyte Esterase Small H (Negative) Urine Mucus Rare H (None) /hpf
[2022-12-21] MEDS ORDERED: MECLIZINE 25 MG TAB PO PRN (18:23)
[2022-12-22] MEDS: ATORVASTATIN 40 MG TAB PO SCH (08:18)
[2022-12-22] MEDS: ASPIRIN 325 MG TAB PO SCH (08:19)
[2022-12-22 09:59] LABS: African American GFR (CKD) 88 (>60 ml/min/1.73 sqM); Anion Gap 5 mmol/L; Blood Urea Nitrogen 13 mg/dL (7-17); Calcium 9.2 mg/dL (8.4-10.2); Carbon Dioxide 30 mmol/L (22-30); Chloride 105 mmol/L (98-107); Glucose 99 mg/dL (74-99); HCT 49.6 % (34.0-46.0); HGB 16.9 gm/dL (11.4-16.0); MCH 32.6 pg (25.0-35.0); MCHC 34.1 g/dL (31.0-37.0); MCV 95.7 fL (80.0-100.0); Mean Platelet Volume 7.8; Non-African American GFR(CKD) 77 (>60 ml/min/1.73 sqM); Platelet Count 247 k/uL (150-450); Potassium 4.1 mmol/L (3.5-5.1); RBC 5.18 m/uL (3.80-5.40); RDW 12.8 % (11.5-15.5); Sodium 140 mmol/L (137-145); WBC 9.3 k/uL (3.8-10.6)
--- NOTE | 2022-12-22 10:20 | P.CNNES ---
History of Present Illness Consult date: 12/22/22 Requesting physician: Carmenza Leung Reason for Consult: concern for posterior cva History of Present Illness: This is a 77-year-old woman with history of TIA, vertigo, I pretension who presented to the emergency department because of persistent dizziness. It seems that the dizziness has been going on since this past Sunday and has been persistent and happened all of a sudden while watching TV. She is having diff iculty walking as result of her dizziness. She could not describe her dizziness but feel dizzy with moving her eyes even with rest or any position. She has to hold onto the wall for assistance. She denies any recent sickness, fever, cough. She has heaves this sunday but denies nausea or vomiting. Denies focal weakness. Denies head trauma. Denies visual disturbance. Denies ringing of ear.s Some of the workup during his hospital visit consisted of: So far patient is afebrile. White blood cell is 9.5 thousand. Comprehensive metabolic panel is unremarkable CT of the head is reported as no acute intracranial process. Nonspecific white matter changes, likely secondary due to chronic small vessel ischemic disease. CT angiography of the head and neck was reported as no evidence of dissection of the cervical internal carotid artery or vertebral artery or any evidence of significant stenosis at the carotid bifurcation. No evidence of intracranial high-grade stenosis or intracranial aneurysm. Review of Systems Review of system: The 12 point system was reviewed and apparent positive and negative per HPI. Past Medical History Past Medical History: COPD, CVA/TIA, Hypertension Additional Past Medical History / Comment(s): BRONCHITIS. mild valvular disease, Neuropathy LOWER EXTREMITIES. LOWER BACK (BULGING DISCS). History of Any Multi-Drug Resistant Organisms: None Reported Past Surgical History: Breast Surgery, Cholecystectomy, Hysterectomy Additional Past Surgical History / Comment(s): BILATERAL CATARACT AND LENS IMPLANTS. LEFT BREAST LUMPECTOMY (PATIENT THINKS ITS PRECANCEROUS) Past Anesthesia/Blood Transfusion Reactions: Motion Sickness, Postoperative Nausea & Vomiting (PONV) Past Psychological History: Anxiety Smoking Status: Never smoker Past Alcohol Use History: Rare Past Drug Use History: None Reported - Past Family History Son(s) Family Medical History: Pulmonary Embolus Medications and Allergies Home Medications Medication Instructions Recorded Confirmed Type lisinopriL [Zestril] 2.5 mg PO DAILY 12/16/20 12/21/22 History Aspirin EC [Ecotrin Low Dose] 81 mg PO DAILY 12/21/22 12/21/22 History Cholecalciferol [Vitamin D3 (25 50 mcg PO DAILY 12/21/22 12/21/22 History Mcg = 1000 Iu)] Meclizine [Antivert] 25 mg PO TID PRN 12/21/22 12/21/22 History Mv-Mn/Om3/Dha/Epa/Fish/Lut/Jax 1 cap PO DAILY 12/21/22 12/21/22 History [Ocuvite Adult 50 Plus Softgel] Allergies Allergy/AdvReac Type Severity Reaction Status Date / Time codeine Allergy Nausea & Verified 12/21/22 14:48 Vomiting latex Allergy Rash/Hives Verified 12/21/22 14:48 Physical Examination - Vital Signs Vital Signs: Vital Signs Temp Pulse Resp BP Pulse Ox 12/22/22 08:20 72 17 143/71 97 12/22/22 07:45 98.1 F 54 L 16 132/78 95 12/22/22 06:10 56 L 16 136/97 12/22/22 05:30 54 L 15 124/67 94 L 12/22/22 05:00 52 L 16 118/69 95 12/22/22 03:10 56 L 16 118/61 95 12/22/22 02:30 53 L 15 122/68 95 12/22/22 01:30 54 L 16 124/74 96 12/21/22 19:52 68 16 142/71 95 12/21/22 15:56 88 18 162/94 97 12/21/22 14:00 58 L 18 152/75 97 12/21/22 10:55 98.2 F 61 20 169/72 98 GENERAL: The patient is lying in bed and is not in acute distress. NEUROLOGICAL: Higher mental function: The patient is awake, alert, oriented to self, place and time. Patient is following commands. No aphasia and no neglect. Cranial nerves: The pupils are round, equal and reactive to light and accommodation. Visual becerril are full to confrontation throughout. Extraocular movement is intact no nystagmus is noted. Facial sensation is normal to touch throughout. The facial strength is normal throughout. Hearing is mildly decreased bilaterally to hand rub. Tongue is midline and moved [id number] without any difficulty. No dysarthria is noted. Shoulder shrug is normal bilaterally. Motor: Gait had difficulty getting out of bed and walking. The strength is 5 over 5 throughout. Normal tone and bulk. Cerebellum: Normal finger to nose heel to chin bilaterally. Sensation: Sensation is normal to touch throughout. Reflexes (right/left): 1+ throughout. Plantars are mute bilaterally. Results - Laboratory Findings CBC and BMP: 12/22/22 09:33 12/22/22 09:33 Abnormal Lab Findings: Abnormal Labs 12/21/22 12/21/22 11:12 11:19 Hgb 16.8 H Hct 49.9 H Ur Leukocyte Esterase Small H Urine Mucus Rare H Assessment and Plan Assessment: This is a 77-year-old woman with the dizziness since this past Sunday. Dizziness has been persistent. CT of the head and CT angiography of the head and neck is unremarkable Acute vertigo seems more peripheral History of vertigo Hypertension Plan: MRI of the brain is ordered by the primary at team as well as 2-D echo and is pending Patient started on meclizine 50 mg 1 tablet 3 times a day when necessary I change it to 12.5 mg 4 times a day scheduled for the first week and after that can be when necessary Orthostatic vitals is ordered is pending I ordered TSH and Hemoglobin A1c. She is currently on aspirin 325 daily as well as Lipitor 40 mg daily started by the primary team. PT OT and [employer] are consulted If MRI the brain is negative and patient continues to have dizziness then recommend the patient follow up with ENT as an outpatient and consider vestibular rehab therapy. Defer the rest of the medical management to primary team The plan discussed with the patient and primary attending Thank you for the consultation. Dr. John will start neurology service tomorrow A.M. Time with Patient: Greater than 30
--- NOTE | 2022-12-22 11:06 | CA ---
Transthoracic Echo Report Name: Irma Butts Age: 77 Gender: F : 1945 Exam Date: 12/22/2022 07:58 Exam Location: [place] [facility] Ht (in): 69 Wt (lb): 167 Ordering Physician: Silvia Ibanez DO Attending/Referring Phys: [id number], [employer] Supervisor Modesta [facility]ríguez [facility] Procedure CPT: Indications: Thrombus Cardiac Hx: Technical Quality: Fair Contrast 1: Total Dose (mL): Contrast 2: Total Dose (mL): MEASUREMENTS (Male / Female) Normal Values 2D ECHO LV Diastolic Diameter PLAX 3.7 cm 4.2 - 5.9 / 3.9 - 5.3 cm LV Systolic Diameter PLAX 2.7 cm IVS Diastolic Thickness 0.9 cm 0.6 - 1.0 / 0.6 - 0.9 cm LVPW Diastolic Thickness 0.9 cm 0.6 - 1.0 / 0.6 - 0.9 cm LV Relative Wall Thickness 0.5 M-MODE Aortic Root Diameter MM 2.2 cm LA Systolic Diameter MM 3.4 cm LA Ao Ratio MM 1.5 AV Cusp Separation MM 1.9 cm DOPPLER AV Peak Velocity 129.3 cm/s AV Peak Gradient 6.7 mmHg AV Mean Velocity 84.1 cm/s AV Mean Gradient 3.3 mmHg AV Velocity Time Integral 29.1 cm LVOT Peak Velocity 85.1 cm/s LVOT Peak Gradient 2.9 mmHg LVOT Velocity Time Integral 18.9 cm Mitral E Point Velocity 55.5 cm/s Mitral A Point Velocity 74.2 cm/s Mitral E to A Ratio 0.7 MV Deceleration Time 282.3 ms LV E' Lateral Velocity 8.8 cm/s Mitral E to LV E' Lateral Ratio 6.3 LV E' Septal Velocity 8.9 cm/s Mitral E to LV E' Septal Ratio 6.2 TR Peak Velocity 187.9 cm/s TR Peak Gradient 14.1 mmHg Right Atrial Pressure 8.0 mmHg Pulmonary Artery Systolic Pressu 22.1 mmHg Right Ventricular Systolic Press 22.1 mmHg FINDINGS Left Ventricle Normal left ventricular size, wall thickness, systolic function with no obvious regional wall motion abnormalities. The ejection fraction is visually estimated at 55-60%. Right Ventricle Mild right ventricular dilatation. Right Atrium The right atrium is normal in size. Left Atrium The left atrium is normal in size. Mitral Valve Structurally normal mitral valve. Trace mitral regurgitation. Aortic Valve Trileaflet aortic valve. Trace aortic regurgitation. Tricuspid Valve Structurally normal tricuspid valve. Trace tricuspid regurgitation. Pulmonic Valve Pulmonic valve not well visualized. No pulmonic regurgitation. Pericardium No pericardial effusion. Aorta Normal aortic root dimension. CONCLUSIONS Normal LV systolic function Mild RV dilatation Previewed by: Dr. Winston Morales MD (Electronically Signed) Final Date: 22 December 2022 11:05
[2022-12-22] MEDS ORDERED: HYDROcodone/APAP 5-325MG 1 EACH TAB PO PRN (14:00)
[2022-12-22] MEDS ORDERED: bisacodyL 5 MG TABLET.DR PO PRN (14:00)
[2022-12-22] MEDS ORDERED: ACETAMINOPHEN TAB 325 MG TAB PO PRN (14:00)
[2022-12-22] MEDS ORDERED: ONDANSETRON 4 MG/2 ML VIAL IVP PRN (14:00)
[2022-12-22] MEDS ORDERED: MELATONIN 5 MG TABLET PO PRN (14:00)
[2022-12-22] MEDS ORDERED: IBUPROFEN 400 MG TAB PO PRN (14:01)
--- NOTE | 2022-12-22 15:42 | P.PN ---
Subjective Progress Note Date: 12/22/22 (delayed charting seen at 0810) Patient is a 77-year-old female with history of vertigo, prior TIA, COPD, and hypertension who presented to the ER with complaints of persistent dizziness. On arrival to the ER her vital signs are within normal limits. Laboratory analysis was remarkable for hemoglobin of 16.8 and a hematocrit of 49.9, troponin negative at 0.012, urinalysis negative. CT of the head and neck showed no evidence of dissection of the cervical internal carotid arteries and vertebral arteries were any significant stenosis, no evidence of high grade stenosis of intracranial or intracranial aneurysm. CT brain shows no acute process with nonspecific white matter changes likely secondary to chronic small vessel ischemic disease. In the ER she was given a dose of antivert without relief. There was concern for possibel CVA and she was given a dose of Aspirin. She was placed in observation for concerns of posterior circulation stroke. Neurology was consulted. Tele was unremarkable, echo with preserved EF and no significant valvular disease, orthostatics negative. Patient seen and examined at bedside. she conitnues to have dizziness that is unchaged from yesterday. No other complaints currently. Vital signs reviewed General: nontoxic, no distress, appears at stated age Cardiovascular: S1S2 reg, no murmur, positive posterior tibial pulse bilateral, Lungs: CTA bilateral, no rhonchi, no rales , no accessory muscle use Abdominal: soft, nontender to palpation, no guarding, no appreciable organomegaly Ext: no gross muscle atrophy, no edema b/l lower extremities, no contractures Neuro: CN II-XI grossly intact, no focal neuro deficits Psych: Alert, oriented, appropriate affect Assessment/Plan: Intractable dizziness with history of vertigo and TIA -Aspirin 81 mg daily, Lipitor 40 mg at night -PT/OT/speech evaluation- 2 person assist to walk a few feet and transfer from sitting to standing, unsafe for dishcarge home without 24 hours help at this time. -Echocardiogram: EF 55-60%, no significant valvular disease, mild RV dilitation -Telemetry- no significant arrhythmia -MRI brain- pending -D/W Dr. Villalobos await MRI brain ativert 12.5 mg QUID X 1 week an then prn -Hold lisinopril for permissive hypertension for 48 hours - TSH normal, A1C pending - Lipid panel pending Data Review: Vitals from 7:45 AM temperature 98.1, pulse 54, respirations 16, blood pressure 132/78, O2 sat 95% on room air DVT prophylaxis: Lovenox Anticipated discharge date: pending clinical course Anticipated discharge place: vs [facility] This dictation was prepared using si[employer] voice recognition software. Though every attempt is made to correct errors during dictation some may still exist. Objective - Vital Signs Vital signs: Vital Signs Temp 98.6 F 12/22/22 11:54 Pulse 66 12/22/22 13:45 Resp 18 12/22/22 13:45 BP 132/76 12/22/22 13:45 Pulse Ox 95 12/22/22 13:45 FiO2 Intake & Output 12/21/22 12/22/22 12/22/22 18:59 06:59 18:59 Weight 75.75 kg - Labs CBC & Chem 7: 12/22/22 09:33 12/22/22 09:33 Labs: Abnormal Lab Results - Last 24 Hours (Table) 12/22/22 Range/Units 09:33 Hgb 16.9 H (11.4-16.0) gm/dL Hct 49.6 H (34.0-46.0) %
[2022-12-22 16:40] LABS: Chol/HDL Ratio 2.39 Ratio; LDL Cholesterol,Calculated 70.9 mg/dL (0.0-131.0)
[2022-12-22] MEDS: MECLIZINE 12.5 MG TAB PO SCH ×2 (17:30→20:11)
[2022-12-23] MEDS: MECLIZINE 12.5 MG TAB PO SCH ×3 (08:58→17:25)
[2022-12-23] MEDS: ASPIRIN 325 MG TAB PO SCH (08:58)
[2022-12-23] MEDS: ATORVASTATIN 40 MG TAB PO SCH (08:58)
[2022-12-23] MEDS ORDERED: ENOXAPARIN 40 MG/0.4 ML SYRINGE SQ SCH (09:00)
[2022-12-23] MEDS ORDERED: MECLIZINE 25 MG TAB PO SCH (09:00)
--- NOTE | 2022-12-23 14:53 | MR ---
EXAMINATION TYPE: MR brain wo/w con DATE OF EXAM: 12/23/2022 2:04 PM CLINICAL INDICATION:Female, 77 years old with history of dizziness; Dizziness. COMPARISON: MRI 07/25/2021 TECHNIQUE: Multi planar, multi sequence imaging was performed through the brain including: T1, T2, In version recovery, susceptibility weighted imaging and gradient echo imaging and Diffusion weighted im aging. The patient was then given intravenous contrast and multi planar, T1 fat-saturation images wer e obtained. IV Contrast: 7.5 cc Gadavist FINDINGS: White matter changes from suspected prior injury along the tentorium on the right near the occipital/ temporal lobe. The cheung-white junctions, ventricular system, basal cisterns appear unremarkable. Diff usion-weighted imaging shows no evidence of restricted diffusion to suggest acute/subacute infarct. I ntracranial arterial flow voids are maintained. Midline structures show no abnormality. Scattered foc i of high T2 signal intensity are seen within the periventricular white matter. The susceptibility we ighted images do not reveal any evidence for micro-hemorrhage. After administration of gadolinium, no abnormal enhancement is seen. Blooming artifact in the right temporal lobe compatible with developme ntal venous normally. The bone marrow signal is within normal limits. Paranasal sinuses and mastoid air cells: No significant paranasal sinus disease. Visualized orbits: Bilaterally aphakia. IMPRESSION: 1. No evidence of intracranial mass, acute/subacute infarct, or abnormal enhancement. 2. Nonspecific white matter changes, likely related to small vessel ischemic disease 3. Right temporal lobe developmental venous anomaly. 4. Remote injury to the inferior right occipital/temporal region inferiorly along the tentorium.
--- NOTE | 2022-12-23 16:40 | P.PN ---
Subjective Progress Note Date: 12/23/22 Patient was initially seen by Dr. Eduardo Villalobos. Please refer to his note for details. Patient is a 77-year-old right-handed female with history of vertigo. Patient states she has history of vertigo about 6 times in the last 5 years. Once it happens, it lasts for a day and then goes away by the next day. Her current symptoms started on Sunday night, while watching TV she had some blurred vision, couldn't concentrate. She thought it was her sugar, therefore went to sleep. Next morning on Sunday when she woke up, everything was spinning, was out of control. She has to hold bed and edge of the wall to go to the bathroom. She was dry heaving. She couldn't open both eyes, as it was making her dizzy, and more spinning. Next a on Sunday, she got up and was not as bad. She still couldn't walk and vision was not good. On , 2 days ago, she went to her primary physician, and her blood pressure was 190/94. She was recommended to go to the hospital with MRI. CT head revealed no acute process. I personally reviewed CT head, and the visualized paranasal sinuses, and external auditory canals are all clear. Patient denies any tinnitus, or loss of hearing. Patient says that on the day 1, she has some pain in the right side below the ear and she massaged it. She was also noticing some popping sounds in the right ear. Patient states that this morning she is better, but still cannot walk, has use a walker. She does not want to open both eyes, as it makes her dizzy when she moves around. Telemetry monitoring so far showing sinus rhythm, with 3 beats of V. tach, couplets, PVCs and PACs. Patient states that she does have a walker at home from her mother's equipments. She does not use it, but has been using it in the last few days. She says that when she does over work, she does get dizzy and sometimes uses it. Patient says that in 2009 she had an episode in which she had extreme confusion, that lasted for a few days. She calls it as a "mini stroke". Even now when she does over work, she'll become slightly confused. Objective - Vital Signs Vital signs: Vital Signs Temp 98.0 F 12/23/22 12:00 Pulse 58 L 12/23/22 12:00 Resp 14 12/23/22 12:00 BP 154/84 12/23/22 12:00 Pulse Ox 96 12/23/22 12:00 FiO2 Intake & Output 12/22/22 12/23/22 12/23/22 18:59 06:59 18:59 Intake Total 221 960 Balance 221 960 Intake: Oral 221 960 Other: # Voids 2 - Exam Patient is an elderly female, very pleasant, in no acute distress. Patient is alert awake oriented to time place and person. Speech and language functions are normal. Patient can name and repeat very well. No aphasia or dysarthria. Attention, concentration and fund of knowledge is adequate. On cranial nerve examination, pupils are equal, round and reacting to light, visual becerril are full on confrontation, with no neglect on double simultaneous stimulation. Extraocular muscles are intact with no nystagmus. Face is symmetr ic, tongue protrudes to the midline. Palatal elevation and sensation normal, hearing and shoulder shrug normal, facial sensation normal. On muscle strength testing, there is no pronator drift and the strength is normal in arms and legs distally and proximally. Sensory to touch is equal with no neglect on double simultaneous stimulation. Cerebellar function showed slight dystaxia for [id number] testing on the left but not on the right. No ataxia for [id number] testing on either side. Tone and bulk of muscles normal. Gait deferred.. On general examination, there is no carotid bruit or murmur, S1-S2 audible. Chest is clear on consultation. Abdomen is soft nontender. No organomegaly, bowel sounds present. Peripheral pulses are present. No edema. - Labs CBC & Chem 7: 12/22/22 09:33 12/22/22 09:33 Assessment and Plan Assessment: This is a 77-year-old woman with the dizziness since this past Sunday. Dizziness has been persistent. CT of the head and CT angiography of the head and neck is unremarkable Possible labyrinthitis. No evidence of acute CVA on MRI. Patient has noticed some popping sounds in the right ear on the day 1 of her symptoms, suggestive of a peripheral process. History of episodes of vertigo 6 in the last 5 years, lasting for one day. Suspect peripheral vestibular dysfunction. Abnormal brain MRI, with evidence of abnormal signal right temporal occipital region, but has been stable since MRI from 03/09/2016. Hypertension, recently uncontrolled. Plan: MRI of the brain revealed no evidence of intracranial mass, acute/subacute infarct or abnormal enhancement. Nonspecific white matter changes, likely related to small vessel ischemic disease. Right temporal lobe developmental venous anomaly. Remote injury to the inferior right occipital/temporal region inferiorly along the tentorium. I personally reviewed MRI, and agree with the findings. I compared to the previous MRI from 03/09/2016 and this abnormality is essentially unchanged. I was suspecting possible PRES, but as this lesion has been present since 2016, is unlikely to be PRES. 2-D echo revealed normal left ventricular systolic function with EF 55-60%. Mild right ventricle dilation. Normal left atrial size. No obvious embolic source. CT angiography of the head and neck was reported as no evidence of dissection of the cervical internal carotid artery or vertebral artery or any evidence of si gnificant stenosis at the carotid bifurcation. No evidence of intracranial high-grade stenosis or intracranial aneurysm. Hemoglobin A1c 5.6 B12 477, TSH 2.46 normal. Lipid panel with cholesterol 138, LDL 70, HDL 57, triglycerides 46. Lipids are well controlled. Patient not taking any statins. Recommend optimize control of blood pressure. Patient started on meclizine 50 mg 1 tablet 3 times a day when necessary I change it to 12.5 mg 4 times a day scheduled for the first week and after that can be when necessary Patient was taking aspirin 81 mg daily, recommending increasing to 2 baby aspirins a day. Also started on Lipitor 40 mg by PCP. PT OT and [employer]NAL [employer]ICATION[employer] INTERN are consulted If the symptoms persist, may follow up with ENT to evaluate for peripheral vestibular dysfunction. Neurologically otherwise clear for discharge. Discussed with primary physician. Time with Patient: Greater than 30
[2022-12-23 17:03] VITALS: BP 157/75; PULSE 64; RESP 16; TEMP 98.3
--- NOTE | 2022-12-23 17:45 | P.DS ---
Providers Date of admission: 12/21/22 17:40 Expected date of discharge: 12/23/22 Attending physician: Silvia Ibanez DO Consults: 12/21/22 17:39 Consult Physician Urgent Consulting Provider: Eduardo Villalobos Consult Reason/Comments: concern for posterior cva Do you want consulting provider notified?: Yes, Notify in am Primary care physician: Andres Velasquez MD Hospital Course: Discharge Diagnosis: Peripheral vertigo, possible viral labyrinthitis HTN Prior TIA Hospital Course: Patient is a 77-year-old female with history of vertigo, prior TIA, COPD, and hypertension who presented to the ER with complaints of persistent dizziness. On arrival to the ER her vital signs are within normal limits. Laboratory analysis was remarkable for hemoglobin of 16.8 and a hematocrit of 49.9, troponin negative at 0.012, urinalysis negative. CT of the head and neck showed no evidence of dissection of the cervical internal carotid arteries and vertebral arteries were any significant stenosis, no evidence of high grade stenosis of intracranial or intracranial aneurysm. CT brain shows no acute process with nonspecific white matter changes likely secondary to chronic small vessel ischemic disease. In the ER she was given a dose of antivert without relief. There was concern for possibel CVA and she was given a dose of Aspirin. She was placed in observation for concerns of posterior circulation stroke. Neurology was consulted. Tele was unremarkable, echo with preserved EF and no significant valvular disease, orthostatics negative. She underwent MRI Brain which showed no evidence of acute or sub acute CVA but did show a remote injury to the right occipital/temporal region. She was doing slightly better with her ataxia and she was cleared by neurology and determined stable for discharge. Follow-up: increased ASA to 2 baby aspirin daily, check blood pressures at home as most have been controlled, continue lisinopril 5 mg dialy, meclizine 12.5 mg 4 times daily for the next 5-7 days and then as needed. Recommended ENT follow- up. [facility] home care for PT/OT for ataxia. Patient seen and examined at bedside. still having some dizziness but it is getting better she can now watch TV and read her phone. Vital signs reviewed and stable. General: nontoxic, no distress, appears at stated age Cardiovascular: S1S2 reg, no murmur, positive posterior tibial pulse bilateral, Lungs: CTA bilateral, no rhonchi, no rales , no accessory muscle use Abdominal: soft, nontender to palpation, no guarding, no appreciable organomegaly Ext: no gross muscle atrophy, no edema b/l lower extremities, no contractures Neuro: CN II-XI grossly intact, no focal neuro deficits Psych: Alert, oriented, appropriate affect A total of 35 minutes of time were spent preparing this complex discharge summary. Patient was discharged on 12/23/22. This dictation was prepared using Smart[employer] voice recognition software. Though every attempt is made to correct errors during dictation some may still exist. Patient Condition at Discharge: Stable Plan - Discharge Summary Discharge Rx Participant: Yes New Discharge Prescriptions: New Meclizine [Antivert] 12.5 mg PO QID tab Continue lisinopriL [Zestril] 2.5 mg PO DAILY Cholecalciferol [Vitamin D3 (25 Mcg = 1000 Iu)] 50 mcg PO DAILY Mv-Mn/Om3/Dha/Epa/Fish/Lut/Jax [Ocuvite Adult 50 Plus Softgel] 1 cap PO DAILY Changed Aspirin EC [Ecotrin Low Dose] 162 mg PO DAILY #0 Discontinued Meclizine [Antivert] 25 mg PO TID PRN PRN Reason: Vertigo Discharge Medication List lisinopriL [Zestril] 2.5 mg PO DAILY 12/16/20 [History] Cholecalciferol [Vitamin D3 (25 Mcg = 1000 Iu)] 50 mcg PO DAILY 12/21/22 [History] Mv-Mn/Om3/Dha/Epa/Fish/Lut/Jax [Ocuvite Adult 50 Plus Softgel] 1 cap PO DAILY 12/21/22 [History] Aspirin EC [Ecotrin Low Dose] 162 mg PO DAILY #0 12/23/22 [Rx] Meclizine [Antivert] 12.5 mg PO QID tab 12/23/22 [Rx] Follow up Appointment(s)/Referral(s): Scottie Vazquez DO [Doctor of Osteopathic Medicine] - As Needed () Andres Velasquez MD [Primary Care Provider] - 1-2 days Activity/Diet/Wound Care/Special Instructions: Activity: fall precautions Diet: regular Special Instructions: Be careful when up and walking. Someone from [facility] should call you on Sunday or Sunday to make arrangement for therapy to come to the house Please check your blood pressure daily and make a log for Dr. Velasquez. Please call her office if you have 2 readings with the top number greater than 160 or 2 reading with the bottom number greater than 90. Take your meclizine/Antivert 12.5 mg 4 times daily for the next 5-7 days and then you can switch to as needed. Thank you for trusting us with your care. We wish you well on your journey to better health. Discharge Disposition: HOME SELF-CARE
== END 2022-12-23 19:50 | disposition home or self-care (01) | DRG 149 ==
LOC: EC 10:53 → 3SCARD 17:40 → OBSVTOIN 12-22 17:51 → UNDODISOB 12-23 19:50
PROVIDERS: ADMIT Internal Medicine; ATTEND Internal Medicine
DX: H83.09 Labyrinthitis, unspecified ear (principal); H81.399 Other peripheral vertigo, unspecified ear; Z86.73 Personal history of transient ischemic attack (TIA), and cerebral infarction without residual deficits; Z28.311 Partially vaccinated for COVID-19; F41.9 Anxiety disorder, unspecified; G62.9 Polyneuropathy, unspecified; G89.29 Other chronic pain; I10 Essential (primary) hypertension; H53.8 Other visual disturbances; Z79.82 Long term (current) use of aspirin; Z88.5 Allergy status to narcotic agent; Z91.040 Latex allergy status; M54.50 Low back pain, unspecified; R26.9 Unspecified abnormalities of gait and mobility; Z79.899 Other long term (current) drug therapy
CPT/HCPCS: 36415; 70450; 70496; 70498; 70553; 80048; 80053; 80061; 81001; 83036; 83735; 84443; 84484; 85025; 85027; 85610; 85730; 93005; 93306

== ENCOUNTER → 2023-09-20 | Outpatient (CLI) | payer MEDICARE, OTHER ==
--- NOTE | 2023-09-22 20:43 | MM ---
Reason for Exam: Screening (asymptomatic). Last screening mammogram was performed 12 month(s) ago. Patient History: Menarche at age 14. First Full-Term at age 20. Hysterectomy at age 39. Postmenopausal. 2020, Stereotactic Core Biopsy on the Left side. Mother had breast cancer, age 80. Risk Values: Francisca 5 year model risk: 3.5%. NCI Lifetime model risk: 5.8%. Prior Study Comparison: 12/01/2019 Bilateral MG screening mammo w CAD - 2, [facility]. 12/02/2020 Bilateral MG screening mammo w CAD - 2, [facility]. 09/13/2022 Bilateral MG 3D screening mammo w/cad, [facility]. Tissue Density: There are scattered areas of fibroglandular density. Findings: Analyzed By CAD. Microclip left breast from prior biopsy. There is no suspicious group of microcalcifications or new suspicious mass in either breast. Overall Assessment: Benign, BI-RAD 2 Management: Screening Mammogram of both breasts in 1 year. See note below in regards to patient's increased 5 year Francisca score. Patient should continue monthly self-breast exams. A clinical breast exam by your physician is recommended on an annual basis. This exam should not preclude additional follow-up of suspicious palpable abnormalities. Note on Francisca scores and lifetime risk: 1. A Francisca score greater than 3% is considered moderate risk. If this is the case, consider specialist referral to assess eligibility for a risk reducing agent. 2. If overall lifetime risk for the development of breast cancer is 20% or higher, the patient may qualify for future screening with alternating mammogram and breast MRI. Electronically signed and approved by: Lyndsay Allen M.D. Radiologist
== END | disposition home or self-care (01) ==
LOC: RADMAMWWP 11:32
PROVIDERS: ATTEND Family Medicine
DX: Z12.31 Encounter for screening mammogram for malignant neoplasm of breast (principal); Z78.0 Asymptomatic menopausal state; Z80.3 Family history of malignant neoplasm of breast
CPT/HCPCS: 77063; 77067

== ENCOUNTER 2023-09-28 10:19 | Day surgery (SDC) | payer MEDICARE, OTHER ==
[2023-09-28] MEDS: SODIUM CHLORIDE 0.9% 1,000 ML IV ONE (12:20)
[2023-09-28 13:01] VITALS: RESP 16; TEMP 98
[2023-09-28] MEDS ORDERED: fentaNYL (PF) 50 MCG/ML 2 ML AMP ONE (14:31)
[2023-09-28] MEDS: BENZOCAINE SPRAY 1 CAN MUCOUS MEM ONE (14:38)
[2023-09-28] MEDS: fentaNYL (PF) 50 MCG/ML 2 ML AMP IVP ONE (14:40)
[2023-09-28] MEDS: MIDAZOLAM 2 MG/2 ML VIAL IVP ONE (14:40)
[2023-09-28 16:45] VITALS: BP 126/61; PULSE 71
--- NOTE | 2023-09-29 04:02 | P.PCN ---
Date of Procedure: 09/29/23 Operative Findings: TRANSESOPHAGEAL ECHOCARDIOGRAM ELECTRICIAN MAINTENANCE: ENRICO REBOLLAR MD, RPVI INDICATION: Rule out cardiac source of embolization SEDATION: Conscious sedation COMPLICATION: None LEVEL OF SEDATION [] PROCEDURE DESCRIPTION: After obtaining an informed consent, the patient was brought to transesophageal echocardiogram room. Pulse oximetry and heart monitors were attached to the patient. The patient throat was sprayed using lidocaine. The patient was turned into left lateral position. After that a bite guard was placed. After an appropriate conscious sedation was initiated, the transesophageal echocardiogram was advanced through a bite guard into the mid esophagus. A 2-D echocardiogram images, color Doppler images, continuous wave images, pulse-wave images, of various cardiac structure were performed. After that the transesophageal echocardiogram probe was advanced into the stomach and fixed to obtain transgastric view was. The probe was brought into the mid esophagus. Inter-atrial septum was interrogated using 2D images, color Doppler images, and then contrast study. After that transesophageal echocardiogram was withdrawn out and upon withdrawing the descending thoracic aorta all the way up to the arch was evaluated. CONCLUSION: 1. Intact interatrial septum with no evidence of PFO or ASD 2. Intact left atrial appendage with no thrombus 3. Normal biventricular systolic function 4. Degenerative changes involving the aortic valve 5. Mild to moderate mitral regurgitation 6. No pericardial effusion
== END 2023-09-28 16:13 | disposition home or self-care (01) ==
LOC: CATHCVL 10:19
PROVIDERS: ATTEND Internal Medicine Interventional Cardiology
DX: I34.0 Nonrheumatic mitral (valve) insufficiency (principal); I10 Essential (primary) hypertension; E78.5 Hyperlipidemia, unspecified; Z79.82 Long term (current) use of aspirin; Z79.899 Other long term (current) drug therapy
CPT/HCPCS: 93312; 93320; 93325; 99152; J2250; J3010

== ENCOUNTER → 2024-11-28 | Outpatient (CLI) | payer MEDICARE, OTHER ==
--- NOTE | 2024-11-28 08:34 | MM ---
Reason for Exam: Screening (asymptomatic). Last mammogram was performed 1 year(s) and 2 month(s) ago. Patient History: Menarche at age 14. First Full-Term at age 20. Hysterectomy at age 39. Postmenopausal. 2020, Stereotactic Core Biopsy on the Left side. Mother had breast cancer, age 80. Risk Values: Francisca 5 year model risk: 3.4%. NCI Lifetime model risk: 5.2%. Prior Study Comparison: 12/01/2019 Bilateral MG screening mammo w CAD - 2, [facility]. 12/02/2020 Bilateral MG screening mammo w CAD - 2, [facility]. 09/13/2022 Bilateral MG 3D screening mammo w/cad, [facility]. 09/20/2023 Bilateral MG 3D screening mammo w/cad, [facility]. Tissue Density: The breasts are heterogeneously dense, which may obscure small masses. Findings: Analyzed By CAD. Right breast: There is no suspicious group of microcalcifications or new suspicious mass. Benign-appearing calcifications right breast. Left breast: There is no suspicious group of microcalcifications or new suspicious mass. Benign-appearing calcifications left breast. Overall Assessment: Benign, BI-RAD 2 Management: Screening Mammogram of both breasts in [address] [facility] will attempt to contact patient to return for supplemental views and ultrasound if indicated. Patient should continue monthly self-breast exams. A clinical breast exam by your physician is recommended on an annual basis. This exam should not preclude additional follow-up of suspicious palpable abnormalities. Note on Francisca scores and lifetime risk: 1. A Francisca score greater than 3% is considered moderate risk. If this is the case, consider specialist referral to assess eligibility for a risk reducing agent. 2. If overall lifetime risk for the development of breast cancer is 20% or higher, the patient may qualify for future screening with alternating mammogram and breast MRI. [facility], , 11/28/2024 8:19 AM. Electronically signed and approved by: Edilson Reyes DO
== END | disposition home or self-care (01) ==
LOC: RADMAMWWP 07:55
DX: Z12.31 Encounter for screening mammogram for malignant neoplasm of breast (principal); R92.333 Mammographic heterogeneous density, bilateral breasts; R92.1 Mammographic calcification found on diagnostic imaging of breast; Z78.0 Asymptomatic menopausal state; Z80.3 Family history of malignant neoplasm of breast
CPT/HCPCS: 77063; 77067